=== PATIENT | female | born 1950 | race Caucasian/White ===

== ENCOUNTER 2019-06-29 08:54 | Emergency (ER) | payer MEDICARE, SELFPAY ==
--- NOTE | 2019-06-29 09:22 | ED_ITS ---
Entered by Sundar Taveras, acting as scribe for Crystal Ramirez DO HPI - General Adult General: Chief complaint: Urogenital-Female Stated complaint: UTI Time Seen by Provider: 06/29/19 09:46 History of Present Illness: HPI narrative: 69 yo female presents with UTI. Pt states that she has pain with urination. Pt states that she started having this issue last night. Pt states that she has blood in her urine. Pt states that she had pain with urination about 4 months ago, but didn't have blood in her urine. Pt states that MD complaint: UTI Associated symptoms: Reports nausea; Deny chest pain, dyspnea, headache(s), rash, palpitations or vomiting Review of Systems Const: Denies: fever, chills, body aches, change in appetite, change in weight or fatigue Eyes: Denies: change in vision, blurry vision, blind spots, photophobia, eye redness or yellow eyes ENMT: Denies: throat pain, uvular edema, enlarged tonsils, painful swallowing, hoarseness, swelling of lips/tongue, oral sores/lesions or bad breath Card: Denies: chest pain, palpitations, irregular heart rhythm, edema, swelling of feet/ankles or shortness of breath on exertion Resp: Denies: shortness of breath, productive cough, non-productive cough, wheezing, stridor or pain on inspiration GI: Reports: nausea; Denies: abdominal pain, vomiting, vomiting blood, coffee grounds in vomit, difficulty swallowing, heartburn/indigestion, feeling full early, diarrhea, constipation or belching : Reports: difficulty urinating, painful urination and urinary urgency; Denies: flank pain, urinary frequency, urinary hesitancy or urinary dribbling Musc: Denies: neck pain, back pain, extremity pain, extremity swelling, joint pain, joint swelling, redness, joint warmth, joint stiffness or limited range of motion Skin/Breast: Denies: rash, itching, redness, sensitivity to light, skin pain, skin tenderness, skin swelling, sores, new lesion, changing lesion, non-healing lesion or chronic lesion Neuro: Denies: headache, numbness in extremities, weakness in extremities, lack of coordination, difficulty walking, frequent falls or dizziness Psych: Denies: anxiety, depression, mood swings, panic attacks, sleeping less or sleeping more Endo: Reports: excessive urination; Denies: excessive thirst, tired all the time, cold intolerance or excessive sweating Floyd/Lymph: Denies: easy bruising, easy bleeding, petechiae, purpura or enlarged lymph nodes PFSH ED PFSH: Statuses (acute, chronic, etc) shown below reflect problem list status as previously entered and may not be historically accurate Medical History (Updated 06/29/19 @ 10:10 by Crystal Ramirez DO) CHF (congestive heart failure) (Acute) Hypertension (Acute) Surgical History (Updated 06/29/19 @ 09:46 by Sundar Taveras) History of (Acute) History of cholecystectomy (Acute) Hx of hysterectomy (Acute) Hx of tonsillectomy (Acute) Social History Smoking and tobacco status: never smoked Physical Exam Const: COMMON NORMALS: no apparent distress, average body habitus, oriented x3 and no limitations EXAM LIMITATIONS: no altered mental status GENERAL APPEARANCE: cooperative and well kempt HENMT: COMMON NORMALS: normocephalic HEAD & SCALP: normal to inspection and normocephalic THROAT: no uvular edema Eye: GENERAL EYE: normal appearance of both eyes VISUAL ACUITY: Yes acuity normal Neck/C-Spine: COMMON NORMALS: full ROM, no lymphadenopathy and supple GENERAL: Yes normal visual inspection Lymph: LYMPHATIC: no lymphadenopathy noted Chest: COMMONS NORMALS: inspection of chest normal GI: COMMON NORMALS: normal to inspection, nondistended, normoactive bowel sounds and non-tender : COMMON NORMALS: Yes no CVA tenderness BLADDER/KIDNEY EXAM: Yes no CVA tenderness Back/Pelvis: COMMON NORMALS: no CVA tenderness Extremity: COMMON NORMALS: full ROM Neuro: COMMON NORMALS: oriented x3 Psych: APPEARANCE: Yes well kempt Course Reevaluation(s): Reevaluation #1: Patients urinalysis reviewed, positive for wbc and blood, will treat for acute cystitis, administered nitrofurantoin in ER and dc'd with same and pyridum. Vital Signs: Vital signs: Vital Signs Temperature 907.5 F H 06/29/19 09:23 Pulse Rate 75 06/29/19 09:23 Respiratory Rate 16 06/29/19 09:23 Blood Pressure 134/70 06/29/19 09:23 Pulse Oximetry 95 06/29/19 09:23 [facility] - General Adult Lab Data: Labs: Lab Results 06/29/19 Range/Units 09:25 Urine Color Red (Yellow) Urine Appearance Bloody A (CLEAR) Urine pH 5 (5-7) Ur Specific Gravit y 1.010 (1.005-1.030) Urine Protein 2+ H (Negative) Urine Glucose (UA) Norm (Normal) Urine Ketones Negative (Negative) Urine Occult Blood 3+ H (Negative) Urine Nitrate Negative (Negative) Urine Bilirubin Neg (NEGATIVE) Urine Urobilinogen Norm (Negative) mg/dL Ur Leukocyte Heather ase 2+ H (Negative) Urine RBC Too numerous to c nt H (0-2) /hpf Urine WBC 80-100 H (0-5) /hpf Ur Squamous Epith Cells 0-4 H (0-5) Urine Bacteria 1+ H (NONE) Discharge Plan Discharge Patient Disposition: Home, Self-Care Clinical Impression: Urinary tract infection Qualifiers: Urinary tract infection type: acute cystitis Hematuria presence: with hematuria Qualified Code(s): N30.01 - Acute cystitis with hematuria Condition: Stable Prescriptions: New nitrofurantoin macrocrystal 100 mg capsule 100 mg PO BID 5 Days Qty: 10 RF: 0 Pyridium 200 mg tablet 200 mg PO Q8H Qty: 7 RF: 0 Discharge Orders: Discharge Order (Routine); Ordered 06/29/19 Ordered By: Crystal Ramirez Referrals: Julianna Sosa MD [Primary Care Provider] - None (Follow up with your pcp) Discharge Diet: Usual diet Discharge Activity: Resume usual activity Activity Restrictions/Additional Instructions: No restrictions Coding Level of Care Code ED Felt Finisher for Chg Fwd Exam Problem Focused The documentation recorded by the Nitin raymond Kialy, accurately reflects the service I personally performed and the decisions made by James scherer Connie, DO Jun 29, 2019 08:54
[2019-06-29 09:23] VITALS: BP 134/70; PULSE 75; RESP 16; TEMP 486.4; TEMP 907.5; O2SAT 95; BMI 25.0
[2019-06-29 09:55] LABS: Add Urine Microscopic? YES; Bilirubin Urine Neg (NEGATIVE); Blood Urine 3+ (Negative); Glucose Urine UA Norm (Normal); Ketones Urine Negative (Negative); Leukocyte Esterase Urine 2+ (Negative); Nitrate Urine Negative (Negative); Protein Urine 2+ (Negative); Urine Appearance Bloody (CLEAR); Urine Color Red (Yellow); Urobilinogen Urine Norm (Negative); pH Urine 5 (5-7)
[2019-06-29 10:08] LABS: Bacteria Urine 1+; RBC Urine TOO NUMEROUS TO CNT /hpf (0-2); Squamous Epithelial Cell Urine 0-4 (0-5); WBC Urine 80-100 /hpf (0-5)
[2019-06-29 10:10] LABS: Add Urine Culture? Yes
[2019-06-29] MEDS: nitrofurantoin SR (BID) 100 mg Capsule PO (10:10)
[2019-06-29 10:15] VITALS: BP 128/74; PULSE 75; RESP 16; O2SAT 95
== END 2019-06-29 10:20 | disposition home or self-care (01) ==
PROVIDERS: Nurse Practitioner Family; Emergency Provider Emergency Medicine Emergency Medical Services; Family Provider Family Medicine; PCP Family Medicine
DX: N30.01 Acute cystitis with hematuria (principal); I11.0 Hypertensive heart disease with heart failure; I50.9 Heart failure, unspecified
CPT/HCPCS: 81001; 87077; 87086; 87186; 99282; 99283

== ENCOUNTER → 2019-07-17 11:39 | Outpatient (BNVA) | payer MEDICARE, SELFPAY | PROVIDERS: Family Provider Family Medicine; PCP Family Medicine; Referring Provider Family Medicine; Visit Provider Orthopaedic Surgery | DX: M25.562 Pain in left knee (principal); M17.12 Unilateral primary osteoarthritis, left knee | CPT/HCPCS: 73560; 73565 ==

== ENCOUNTER 2020-03-17 08:00 | Outpatient (CLI) | payer MEDICARE, SELFPAY ==
--- NOTE | 2020-03-17 08:07 | USCV_ITS ---
Mabel Kelley Age: 70 Gender: F : 1950 Exam Date: 03/17/2020 08:03 Ordering Phys: Nola Givens Technologist: Monica Hsu [place]am [place] [facility] [place] Indication: HTN,CHF BP: 127 / 76 HR: 66 Rhythm: Sinus Technical Quality: Adequate MEASUREMENTS (Male / Female) Normal Values 2D ECHO LV Diastolic Diameter PLAX 3.3 cm 4.2 - 5.9 / 3.9 - 5.3 cm LV Systolic Diameter PLAX 2.0 cm LV Chamber Size 3.5 cm IVS Diastolic Thickness 1.5 cm 0.6 - 1.0 / 0.6 - 0.9 cm IVS Systolic Thickness 1.9 cm LVPW Diastolic Thickness 1.3 cm 0.6 - 1.0 / 0.6 - 0.9 cm LVPW Systolic Thickness 1.6 cm RV Chamber Size 2.6 cm LVOT Diameter 2.0 cm LV Ejection Fraction 2D Teich 70.7 % LV Ejection Fraction MOD 2C 1.7 % LV Ejection Fraction 2C AL 5.0 % LA Diameter 3.0 cm LA Width 2.1 cm LA Height 3.0 cm RA Width 2.1 cm RA Height 2.6 cm Aorta at Sinotubular Diameter 2.8 cm M-MODE LV Diastolic Diameter MM 3.8 cm 4.2 - 5.9 / 3.9 - 5.3 cm LV Systolic Diameter MM 1.9 cm LV Ejection Fraction MM Teich 80.5 % IVS Diastolic Thickness MM 1.4 cm 0.6 - 1.0 / 0.6 - 0.9 cm IVS Systolic Thickness MM 1.6 cm LVPW Diastolic Thickness MM 1.0 cm 0.6 - 1.0 / 0.6 - 0.9 cm LVPW Systolic Thickness MM 1.5 cm RV Diastolic Diameter MM 2.3 cm Aortic Annulus Diameter 3.1 cm LA Ao Ratio MM 1.1 MV E Point Septal Separation 0.1 cm DOPPLER AV Peak Velocity 178.0 cm/s LVOT Peak Velocity 136.0 cm/s AV Area Cont Eq vti 2.4 cm squared AV Area Cont Eq pk 2.4 cm squared MV Area PHT 3.0 cm squared Mitral E to A Ratio 1.2 MV E' Velocity 47.5 cm/s Mitral E to MV E' Ratio 13.3 Mitral E to LV E' Lateral Ratio 15.9 Mitral E to LV E' Septal Ratio 11.4 TR Peak Velocity 154.8 cm/s TR Peak Gradient 9.6 mmHg TR Mean Velocity 126.6 cm/s TR Mean Gradient 6.6 mmHg TR Velocity Time Integral 41.9 cm TV Peak E Velocity 66.0 cm/s Right Atrial Pressure 3.0 mmHg Pulmonary Artery Systolic Pressu 12.6 mmHg PV Peak Velocity 59.0 cm/s RV Acceleration Time 0.1 s RV Ejection Time 0.4 s RV AcT/ET 0.4 FINDINGS Left Ventricle Mild to moderate concentric left ventricular hypertrophy.normal left ventricular size and systolic function, EF 70%.no regional wall motion abnormalities. No regional wall motion abnormalities. Grade II/IV diastolic dysfunction, moderately elevated filling pressures. Right Ventricle The right ventricle is normal in size and function. Right Atrium The right atrium is normal in size. Left Atrium The left atrium is normal in size. Mitral Valve No gross abnormalities noted Aortic Valve Thickened aortic valve. Aortic valve sclerosis. Tricuspid Valve Trace tricuspid valve regurgitation. Pulmonic Valve Trace pulmonary valve regurgitation. Pericardium Normal pericardium without effusion. Aorta Normal ascending aorta dimension. CONCLUSIONS Mild to moderate concentric left ventricular hypertrophy. Normal left ventricular size and systolic function, EF 70%. No regional wall motion abnormalities. Grade II/IV diastolic dysfunction, moderately elevated filling pressures. Thickened aortic valve. Trace of tricuspid and pulmonary valve regurgitation. There is no pericardial effusion. There are no intracardiac masses. Compared to the study from 05/06/2019, the gradient across the aortic valve appears to be less Dr Rigoberto Christianson MD [facility] (Electronically Signed) Final Date: 17 March 2020 14:23 S
== END 2020-03-17 08:01 | disposition home or self-care (01) ==
LOC: US 08:02
PROVIDERS: PCP Nurse Practitioner Family; Visit Provider Nurse Practitioner Family
DX: I11.0 Hypertensive heart disease with heart failure (principal); I50.9 Heart failure, unspecified; R53.83 Other fatigue; I08.3 Combined rheumatic disorders of mitral, aortic and tricuspid valves
CPT/HCPCS: 93306

== ENCOUNTER 2020-12-09 08:04 | Outpatient (CLI) | payer MEDICARE, SELFPAY ==
[2020-12-09 08:24] VITALS: BMI 25.0
--- NOTE | 2020-12-09 08:24 | ECG_ITS ---
[facility] Test Date: 2020-12-09 Pat Name: Mabel Kelley Department: Room: Gender: Female [employer]: : 1950 Requested By: Rigoberto Christianson Order Number: [id number] Adi MD: Rigoberto Christianson M.D. Interpretive Statements NAME OF STUDY: LEXISCAN SESTAMIBI STRESS TEST INDICATION: Sob/cp, PROCEDURE: At the baseline, the EKG revealed normal sinus rhythm with a poor R wave progression.. The baseline blood pressure was 132/74 mm Hg with a heart rate of 76 beats/min. Lexiscan was infused over a period of 20 seconds. A total of 0.4 milligrams of Lexiscan was infused. The stress phase was continued for a total of 5 minutes. Heart rate at the end of the stress phase was 88 with a blood pressure 118/85. The EKG at the peak infusion revealed no significant changes. Sestamibi was injected 20 seconds after the Lexiscan infusion. Blood pressure at the end of the recovery phase was 127/84 with a heart rate of 85 per minute. CONCLUSION: 1. No significant EKG changes with the LexiScan infusion 2. No LexiScan induced chest pain or cardiac arrhythmia 3. Normal blood pressure and heart rate response 4. Sestamibi/sestamibi perfusion scan pending; see separate report. Electronically Signed On 12-10-2020 8:32:31 CDT by Rigoberto Christianson M.D. [id number]
--- NOTE | 2020-12-09 08:24 | NMCV_ITS ---
NM elsa perf SPECT r/s* [id number] Mabel Kelley Age: 70 Gender: F : 1950 Exam Date: 12/09/2020 09:26 Ordering Phys: Rigoberto Christianson MD ([email or web address]) Technologist: PRESTON Hennessy Exam Location: [facility] [place] [address] Indications: SHORTNESS OF BREATH, CHEST PAIN STRESS TEST Please see separate stress test report in [facility] for full findings IMAGE PROTOCOL Rest/Stress 1 Lexiscan Day Radiopharmaceutical Dose (mCi) Administration Site Administered by Rest: Tc-99m 10.5 IV PRESTON Hennessy Sestamibi Stress:Tc-99m 32.6 IV PRESTON Flores Sestamibi Rest: 09-Dec-2020 60 Discovery 630 Stress: 09-Dec-2020 30 Discovery 630 0.4mg Lexiscan. Images obtained in supine and prone position. SPECT RESULTS Technical Quality: Excellent Raw Data Analysis: Normal Image Corrections: No attenuation or motion correction applied Summed Stress Score: 0 Summed Rest Score: 0 Summed Difference Score: 0 PERFUSION FINDINGS Fairly uniform myocardial tracer uptake with no significant perfusion abnormalities . FUNCTIONAL RESULTS (calculated via Gated SPECT) Stress Image LV EF (%): 82 Stress EDV (mL):51 TID: 1.04 Stress ESV (mL):9 FUNCTIONAL FINDINGS: Segmental wall motion analysis revealing no gross wall motion normalities IMPRESSIONS 1. Myocardial perfusion imaging revealing uniform myocardial tracer uptake with no evidence of ischemia 2. Normal LV ejection fraction of 82% 3. LV wall motion analysis revealing no gross wall motion normalities. 4. Normal LV volume. No significant coronary ischemia, based on the above findings Dr Rigoberto Christianson MD [facility] (Electronically Signed) Final Date: 09 December 2020 16:12 S
[2020-12-09 10:22] VITALS: BP 132/74; PULSE 85
[2020-12-09] MEDS: regadenoson 0.4 Mg/5 ml Syringe IVP (10:23)
== END 2020-12-09 08:05 | disposition home or self-care (01) ==
LOC: CDL 08:06
PROVIDERS: PCP Nurse Practitioner Family; Visit Provider Internal Medicine Cardiovascular Disease
DX: R07.9 Chest pain, unspecified (principal); R06.02 Shortness of breath
CPT/HCPCS: 78452; 93017; A9500; J2785

== ENCOUNTER → 2021-10-31 13:47 | Outpatient (BNVA) | payer MEDICARE, SELFPAY | PROVIDERS: PCP Clinical Nurse Specialist Adult Health; Visit Provider Internal Medicine Cardiovascular Disease | DX: I11.0 Hypertensive heart disease with heart failure (principal); I50.33 Acute on chronic diastolic (congestive) heart failure; I35.0 Nonrheumatic aortic (valve) stenosis | CPT/HCPCS: 36415; 80048; 83880; 99214 ==

== ENCOUNTER → 2022-05-02 10:09 | Outpatient (BNVA) | payer MEDICARE, SELFPAY | PROVIDERS: PCP Clinical Nurse Specialist Adult Health; Visit Provider Internal Medicine Cardiovascular Disease | DX: I35.0 Nonrheumatic aortic (valve) stenosis (principal); I11.0 Hypertensive heart disease with heart failure; I50.30 Unspecified diastolic (congestive) heart failure; R07.89 Other chest pain; I49.1 Atrial premature depolarization; R94.31 Abnormal electrocardiogram [ECG] [EKG] | CPT/HCPCS: 93005; 99214 ==

== ENCOUNTER → 2022-08-22 12:30 | Outpatient (BNVA) | payer MEDICARE, SELFPAY | PROVIDERS: PCP Clinical Nurse Specialist Adult Health; Visit Provider Clinical Nurse Specialist Adult Health | DX: I10 Essential (primary) hypertension (principal); M19.90 Unspecified osteoarthritis, unspecified site; G25.81 Restless legs syndrome | CPT/HCPCS: 80053; 85025 ==

== ENCOUNTER → 2022-08-24 14:51 | Outpatient (BNVA) | payer MEDICARE, SELFPAY | PROVIDERS: PCP Clinical Nurse Specialist Adult Health; Visit Provider Clinical Nurse Specialist Adult Health | DX: D72.821 Monocytosis (symptomatic) (principal) | CPT/HCPCS: 85651; 86038; 86140 ==

== ENCOUNTER → 2022-09-04 14:58 | Outpatient (BNVA) | payer MEDICARE, SELFPAY | PROVIDERS: PCP Clinical Nurse Specialist Adult Health; Visit Provider Nurse Practitioner Family | DX: J02.9 Acute pharyngitis, unspecified (principal); R52 Pain, unspecified; U07.1 COVID-19 | CPT/HCPCS: 87426; 87880 ==

== ENCOUNTER → 2022-09-11 09:55 | Outpatient (BNVA) | payer MEDICARE, SELFPAY | PROVIDERS: PCP Clinical Nurse Specialist Adult Health; Visit Provider Nurse Practitioner Family | DX: R30.0 Dysuria (principal); N30.01 Acute cystitis with hematuria | CPT/HCPCS: 81000 ==

== ENCOUNTER → 2022-11-09 14:21 | Outpatient (BNVA) | payer MEDICARE, SELFPAY | PROVIDERS: PCP Clinical Nurse Specialist Adult Health; Visit Provider Nurse Practitioner Family | DX: I11.0 Hypertensive heart disease with heart failure (principal); I50.30 Unspecified diastolic (congestive) heart failure | CPT/HCPCS: 99214 ==

== ENCOUNTER → 2022-12-11 11:09 | Outpatient (BNVA) | payer MEDICARE, SELFPAY | PROVIDERS: PCP Clinical Nurse Specialist Adult Health; Visit Provider Internal Medicine Rheumatology | DX: R76.8 Other specified abnormal immunological findings in serum (principal); M25.551 Pain in right hip; M25.552 Pain in left hip; Z79.1 Long term (current) use of non-steroidal anti-inflammatories (NSAID) | CPT/HCPCS: 99204 ==

== ENCOUNTER → 2023-01-08 08:32 | Outpatient (BNVA) | payer MEDICARE, SELFPAY | PROVIDERS: PCP Clinical Nurse Specialist Adult Health; Visit Provider Clinical Nurse Specialist Adult Health | DX: I10 Essential (primary) hypertension (principal); I50.9 Heart failure, unspecified | CPT/HCPCS: 80061 ==

== ENCOUNTER 2023-03-12 22:30 | Emergency (ER) | payer MEDICARE, SELFPAY ==
[2023-03-12 22:33] VITALS: BP 163/83; PULSE 96; RESP 16; TEMP 36.8; O2SAT 96; BMI 25.0
--- NOTE | 2023-03-12 22:46 | W.ED.FEMALGU ---
HPI - Female Genitourinary General: Chief complaint: Urogenital-Female Stated complaint: blood in urine Time Seen by Provider: 03/12/23 22:36 History of Present Illness: 73-year-old female comes in tonight for complaints of lower abdominal pain for the last 2 days. Patient reports urinary frequency and urgency. Denies she had laid down and felt like she had urinated and when she checked she noticed blood in her pad. Patient had noticed some pink tinge urine when she had urinated in the toilet and when she wiped. Patient appears nontoxic. Patient has a history of CHF and hypertension. Patient has also had a hysterectomy. Patient was told she had pelvic organ prolapse in November. Review of Systems General: Reports: 10 or more systems reviewed and unremarkable except in HPI and below : Reports: difficulty voiding, dysuria, urinary urgency and hematuria PFSH ED PFSH: Medical History Benign essential HTN CHF (congestive heart failure) Generalized osteoarthritis Greater trochanteric pain syndrome of both lower extremities Hypertension Mild aortic stenosis NSAID long-term use Palpitations Restless leg syndrome Surgical History History of History of cholecystectomy Hx of breast implants, bilateral Hx of cataract extraction Hx of hysterectomy Hx of tonsillectomy Family History Father Cancer Mother Cancer Sister Cancer Denies family history of Diabetes CAD (coronary artery disease) Clotting disorder Dementia Chronic kidney disease (CKD) Suicide Anesthesia complication Bleeding disorder Lung disease Stroke Social History Smoking and tobacco/nicotine status: never used tobacco/nicotine Alcohol intake: current Alcohol intake frequency: holidays/special occasions only Substance/Drug Use: never Physical Exam Const: COMMON NORMALS: alert HENMT: COMMON NORMALS: normocephalic HEAD & SCALP: normocephalic MOUTH: Normal oral and palatal mucosa present Neck/C-Spine: COMMON NORMALS: full ROM Resp: COMMON NORMALS: normal respiratory effort and clear to auscultation bilaterally AUSCULTATION: clear to auscultation bilaterally Cardio: COMMON NORMALS: regular rate and regular rhythm RATE: regular rate RHYTHM: regular rhythm GI: COMMON NORMALS: Soft to palpation AUSCULTATION: Yes normoactive bowel sounds PALPATION: Yes Soft to palpation, No Tenderness to palpation present (GI) and No Guarding due to palpation present (GI) Back/Pelvis: COMMON NORMALS: thoracic and lumbar spine normal to inspection Extremity: COMMON NORMALS: normal to inspection Neuro: SENSORIUM/ORIENTATION: Yes alert Skin: COMMON NORMALS: turgor normal GENERAL SKIN EXAM: turgor normal Course Vital Signs: Vital signs: Vital Signs Temperature 98.2 F 03/12/23 22:33 Pulse Rate 96 03/12/23 22:33 Respiratory Rate 16 03/12/23 22:33 Blood Pressure 163/83 03/12/23 22:33 Pulse Oximetry 96 03/12/23 22:33 Oxygen Delivery Me thod Room Air 03/12/23 22:33 MDM - Female Medical Decision Making 73-year-old female comes in today with complaints of lower abdominal pain and urinary frequency with urgency, and hematuria. On exam patient appears nontoxic. Patient appears in mild discomfort. Vital signs are normal except for some mild elevation in blood pressure. Differential diagnosis includes urinary tract infection, urinary retention, bladder cancer, pelvic organ prolapse with complications. White blood cell count was 20,000. CMP had a creatinine of 0.7 and BUN of 19. Urinalysis had a large amount of red blood cells along with bacteria and white blood cells. No significant urinary bladder distention was noted. We will treat patient with Rocephin 2 g in the ER and continue on cefdinir 300 mg twice a day for next 7 days. Patient needs to follow-up with urology for further evaluation of the hematuria. No significant anemia was noted. Patient was stable and discharged home with instructions for follow-up or return to the ER for worsening symptoms. Patient reported understanding and agreed to plan. Lab Data 03/12/23 22:55 03/12/23 22:55 Laboratory Results WBC 20.55 10^3/uL (3.29-11.43) H 03/12/23 22:55 RBC 4.88 10^6/uL (3.85-5.65) 03/12/23 22:55 Hgb 13.80 g/dL (11.27-16.99) 03/12/23 22:55 Hct 43.0 % (36-47) 03/12/23 22:55 MCV 88.1 fl (85-98) 03/12/23 22:55 MCH 28.3 pg (27-33) 03/12/23 22:55 MCHC 32.1 g/dL (30-55) 03/12/23 22:55 RDW 14.1 % (12.1-15.1) 03/12/23 22:55 Plt Count 416 10^3/cmm (157-399) H 03/12/23 22:55 MPV 10.1 fL (7.4-10.4) 03/12/23 22:55 Neut % (Auto) 80.7 % 03/12/23 22:55 Lymph % (Auto) 7.6 % 03/12/23 22:55 [place] % (Auto) 10.6 % 03/12/23 22:55 Eos % (Auto) 0.1 % 03/12/23 22:55 Baso % (Auto) 0.2 % 03/12/23 22:55 Neut # (Auto) 16.57 10^3/uL (1.8-7.7) H 03/12/23 22:55 Lymph # (Auto) 1.6 10^3/uL (0.8-4.8) 03/12/23 22:55 [place] # (Auto) 2.2 10^3/uL (0.2-0.9) H 03/12/23 22:55 Eos # (Auto) 0.0 10^3/uL (0.0-0.8) 03/12/23 22:55 Baso # (Auto) 0.1 10^3/uL (0.0-0.1) 03/12/23 22:55 Nucleated RBC % (auto) 0 % 03/12/23 22:55 Nucleated RBCs # 0.0 /100WBC 03/12/23 22:55 Sodium 136 mmol/L (136-145) 03/12/23 22:55 Potassium 3.8 mmol/L (3.5-5.1) 03/12/23 22:55 Chloride 95 mmol/L (98-107) L 03/12/23 22:55 Carbon Dioxide 30 mmol/L (22-29) H 03/12/23 22:55 Anion Gap 14.8 (5-19) 10/23/23 22:55 BUN 19 mg/dL (8-23) 03/12/23 22:55 Creatinine 0.7 mg/dL (0.5-0.9) 03/12/23 22:55 GFR Calculation Not Reportable 03/12/23 22:55 Glucose 130 mg/dL (65-115) H 03/12/23 22:55 Calculated Osmolality 286 mOsm/kg (285-295) 03/12/23 22:55 Calcium 9.8 mg/dL (8.5-10.5) 03/12/23 22:55 Total Bilirubin 0.3 mg/dL (0.15-1.2) 03/12/23 22:55 AST 21 U/L (0-32) 03/12/23 22:55 ALT 21 U/L (0-33) 03/12/23 22:55 Alkaline Phosphatase 135 U/L (35-105) H 03/12/23 22:55 Total Protein 8.0 g/dL (6.6-8.7) 03/12/23 22:55 Albumin 4.6 g/dL (3.5-5.2) 03/12/23 22:55 Globulin 3.4 g/dL (1.3-4.6) 03/12/23 22:55 Urine Color Red (Yellow) A 03/12/23 23: Urine Appearance Turbid (CLEAR) A 03/12/23 23: Urine pH 6.5 (5-7) 03/12/23 23: Ur Specific [place] 1.010 (1.005-1.030) 03/12/23 23: Urine Protein 3+ (Negative) H 03/12/23 23: Urine Glucose (UA) Norm (Normal) 03/12/23 23: Urine Ketones 1+ (Negative) H 03/12/23 23: Urine Blood 3+ (Negative) H 03/12/23 23: Urine Nitrate Negative (Negative) 03/12/23 23: Urine Bilirubin Neg (Negative) 03/12/23 23: Urine Urobilinogen 1 mg/dL (Negative) H 03/12/23 23:27 Ur Leukocyte Esterase 2+ (Negative) H 03/12/23 23: Urine RBC Too numerous to cnt /hpf (0-2) H 03/12/23 23:27 Urine WBC 15-25 /hpf (0-5) H 03/12/23 23:27 Ur Squamous Epith Cells None /hpf (0-5) 03/12/23 23:27 Amorphous Sediment Not Reportable 03/12/23 23:27 Urine Bacteria 1+ /hpf (NONE) H 03/12/23 23:27 Urine Mucus 1+ /hpf 03/12/23 23:27 No radiology studies performed this visit Discharge Plan Discharge Patient Disposition: Home Clinical Impression: Hematuria Qualifiers: Hematuria type: gross Qualified Code(s): R31.0 - Gross hematuria UTI (urinary tract infection) Qualifiers: Urinary tract infection type: acute cystitis Hematuria presence: with hematuria Qualified Code(s): N30.01 - Acute cystitis with hematuria Condition: Stable Prescriptions: New cefdinir 300 mg capsule 300 mg PO BID 7 Days Qty: 14 0RF No Action loratadine [Allergy Relief (loratadine)] 10 mg tablet 10 mg PO DAILY (DME) Handicap accessible Ramp See Rx Instructions .Route .MEDSUPPLY Qty: 1 0RF Rx Instructions: As directed (DME) Air Bed/Mattress See Rx Instructions .Route .MEDSUPPLY Qty: 1 0RF Rx Instructions: As directed betamethasone dipropionate 0.05 % ointment 1 applic topical DAILY PRN (Reason: skin irritation) Qty: 15 1RF multivitamin Tablet 1 tab PO DAILY verapamil 120 mg tablet extended release 120 mg PO DAILY Qty: 100 3RF spironolactone 25 mg tablet 25 mg PO DAILY Qty: 100 3RF ropinirole 2 mg tablet 2 mg PO DAILY Qty: 90 3RF triamterene-hydrochlorothiazid 37.5-25 mg tablet 1 tab PO DAILY Qty: 90 3RF furosemide 20 mg tablet 20 mg PO DAILY PRN (Reason: edema) Qty: 90 0RF Discharge Orders: Discharge ED (Routine); Ordered 03/12/23 Ordered By: Howard Grant Referrals: Maxx Song SURGICAL TECH [Primary Care Provider] - Discharge Diet: Usual diet Discharge Activity: Increase activity as tolerated Patient Instructions: Urinary Tract Infection in Women (ED) Activity Restrictions/Additional Instructions: Make sure to drink plenty of water and fluids unless restricted. Take antibiotics as directed. Follow-up with primary care in 3 to 5 days for recheck. Follow-up with urologist for further evaluation of blood in urine. Return to ER for worsening symptoms such as high fever greater than 100.4, inability to hold fluids down, lightheadedness, shortness of breath, or new concerns. Coding Level of Care Code ED Paper Guillotine Operator for Mazin Castaneda
[2023-03-12 23:02] LABS: Basophils # 0.1 10^3/uL (0.0-0.1); Basophils % 0.2 %; Eosinophils % 0.1 %; Lymphocytes # 1.6 10^3/uL (0.8-4.8); Lymphocytes % 7.6 %; Mean Corpuscular HGB Conc 32.1 g/dL (30-55); Mean Corpuscular Hemoglobin 28.3 pg (27-33); Mean Corpuscular Volume 88.1 fl (85-98); Mean Platelet Volume 10.1 fL (7.4-10.4); Monocytes # 2.2 10^3/uL (0.2-0.9); Monocytes % 10.6 %; Neutrophils # 16.57 10^3/uL (1.8-7.7); Neutrophils % 80.7 %; Nucleated Red Blood Cells % 0 %; Platelet Count 416 10^3/cmm (157-399); Red Blood Count 4.88 10^6/uL (3.85-5.65); Red Cell Distribution Width 14.1 % (12.1-15.1); White Blood Count 20.55 10^3/uL (3.29-11.43)
[2023-03-12 23:22] LABS: Alanine Aminotransferase 21 U/L (0-33); Albumin Level 4.6 g/dL (3.5-5.2); Alkaline Phosphatase 135 U/L (35-105); Anion Gap 14.8 (5-19); Aspartate Amino Transferase 21 U/L (0-32); Blood Urea Nitrogen 19 mg/dL (8-23); Calcium 9.8 mg/dL (8.5-10.5); Carbon Dioxide 30 mmol/L (22-29); Chloride 95 mmol/L (98-107); Globulin 3.4 g/dL (1.3-4.6); Glucose 130 mg/dL (65-115); Osmolality Calculated 286 mOsm/kg (285-295); Potassium 3.8 mmol/L (3.5-5.1); Sodium 136 mmol/L (136-145); Total Bilirubin 0.3 mg/dL (0.15-1.2)
[2023-03-12 23:43] LABS: Urine Appearance Turbid (CLEAR); Urine Color Red (Yellow)
[2023-03-12 23:44] LABS: Add Urine Microscopic? YES; Bilirubin Urine Neg (Negative); Blood Urine 3+ (Negative); Glucose Urine UA Norm (Normal); Ketones Urine 1+ (Negative); Leukocyte Esterase Urine 2+ (Negative); Nitrate Urine Negative (Negative); Protein Urine 3+ (Negative); Urobilinogen Urine 1 mg/dL (Negative); pH Urine 6.5 (5-7)
[2023-03-12 23:47] LABS: RBC Urine TOO NUMEROUS TO CNT /hpf (0-2)
[2023-03-12 23:48] LABS: WBC Urine 15-25 /hpf (0-5)
[2023-03-12 23:49] LABS: Add Urine Culture? Yes; Bacteria Urine 1+ /hpf; Mucus Urine 1+ /hpf
[2023-03-13] MEDS: cefTRIAXone 2,000 MG in sodium chloride 0.9% (plus) 50 ML 100 MG IV (00:05)
[2023-03-13 00:10] VITALS: BP 129/69; PULSE 94; RESP 18; O2SAT 90
[2023-03-13 00:50] VITALS: BP 128/71; RESP 16; O2SAT 91
== END 2023-03-13 00:59 | disposition home or self-care (01) ==
PROVIDERS: Emergency Provider Nurse Practitioner Family; PCP Clinical Nurse Specialist Adult Health
DX: N30.01 Acute cystitis with hematuria (principal); I11.0 Hypertensive heart disease with heart failure; I50.9 Heart failure, unspecified
CPT/HCPCS: 51701; 51798; 80053; 81001; 85025; 87086; 96365; 99284; J0696

== ENCOUNTER → 2023-03-14 10:54 | Outpatient (BNVA) | payer MEDICARE, SELFPAY | PROVIDERS: PCP Clinical Nurse Specialist Adult Health; Visit Provider Clinical Nurse Specialist Adult Health | DX: N39.0 Urinary tract infection, site not specified (principal) | CPT/HCPCS: 81000 ==

== ENCOUNTER 2023-03-28 15:56 | Outpatient (CLI) | payer MEDICARE, SELFPAY ==
--- NOTE | 2023-03-28 16:30 | USCV_ITS ---
Mabel Kelley Age: 73 Gender: F : 1950 Exam Date: 03/28/2023 16:06 Ordering Phys: Maxx Song NP Technologist: CT Exam Location: [facility] [place] Indication: PROCEDURES: Venous duplex imaging was performed in only the left lower extremity. In addition, the posterior tibial and peroneal trunk were evaluated. FINDINGS: Normal 2-D Doppler and augmentation and compressibility throughout the lower extremity venous structures. Additional imaging through the proximal calf veins also reveals no thrombus. Limited evaluation of the greater saphenous vein is patent with no thrombus. CONCLUSIONS No DVT left lower extremity. Dr. Sarah Veronica DO (Electronically Signed) Final Date: 29 March 2023 11:11 S
== END 2023-03-28 15:57 | disposition home or self-care (01) ==
LOC: RAD 15:56
PROVIDERS: PCP Clinical Nurse Specialist Adult Health; Visit Provider Clinical Nurse Specialist Adult Health
DX: M79.605 Pain in left leg (principal); M79.662 Pain in left lower leg; R31.9 Hematuria, unspecified
CPT/HCPCS: 73590; 81000; 93971

== ENCOUNTER 2023-03-28 15:57 | Outpatient (CLI) | payer MEDICARE, SELFPAY ==
--- NOTE | 2023-03-28 16:11 | XR_ITS ---
WS: [id number] Left leg including the tibia and fibula, AP and lateral views, 03/28/2023 Clinical Data: left medial leg pain Comparison: None. Findings: No fractures or dislocations are seen. The tibia and fibula are intact. The soft tissues are normal. There is medial and lateral joint compartment narrowing of the left knee. The ankle mortise is intact . Impression: Negative for fracture.
== END 2023-03-28 15:58 | disposition home or self-care (01) ==
PROVIDERS: PCP Clinical Nurse Specialist Adult Health; Visit Provider Clinical Nurse Specialist Adult Health
DX: M79.605 Pain in left leg (principal)
CPT/HCPCS: 73590

== ENCOUNTER → 2023-05-10 15:17 | Outpatient (BNVA) | payer MEDICARE, SELFPAY | PROVIDERS: PCP Clinical Nurse Specialist Adult Health; Visit Provider Internal Medicine Cardiovascular Disease | DX: R06.02 Shortness of breath (principal); I10 Essential (primary) hypertension | CPT/HCPCS: 36415; 80048; 83880; 99214 ==

== ENCOUNTER 2023-05-29 14:04 | Outpatient (CLI) | payer MEDICARE, SELFPAY ==
[2023-05-29 14:58] LABS: Anion Gap 15.7 (5-19); Blood Urea Nitrogen 16 mg/dL (8-23); Calcium 9.4 mg/dL (8.5-10.5); Carbon Dioxide 30 mmol/L (22-29); Chloride 93 mmol/L (98-107); Glucose 92 mg/dL (65-115); Osmolality Calculated 281 mOsm/kg (285-295); Potassium 3.7 mmol/L (3.5-5.1); Sodium 135 mmol/L (136-145)
== END 2023-05-29 14:05 | disposition home or self-care (01) ==
PROVIDERS: PCP Clinical Nurse Specialist Adult Health; Visit Provider Internal Medicine Cardiovascular Disease
DX: I50.30 Unspecified diastolic (congestive) heart failure (principal)
CPT/HCPCS: 80048

== ENCOUNTER → 2023-06-01 11:48 | Outpatient (BNVA) | payer MEDICARE, SELFPAY | PROVIDERS: PCP Clinical Nurse Specialist Adult Health; Visit Provider Clinical Nurse Specialist Adult Health | DX: I10 Essential (primary) hypertension (principal); I50.30 Unspecified diastolic (congestive) heart failure; M61.50 Other ossification of muscle, unspecified site | CPT/HCPCS: 80053; 85025; 86140 ==

== ENCOUNTER → 2023-07-05 08:23 | Outpatient (BNVA) | payer MEDICARE, SELFPAY | PROVIDERS: PCP Clinical Nurse Specialist Adult Health; Visit Provider Nurse Practitioner Family | DX: R30.9 Painful micturition, unspecified (principal); N30.01 Acute cystitis with hematuria | CPT/HCPCS: 81000; 87077; 87086; 87184 ==

== ENCOUNTER → 2023-07-18 15:18 | Outpatient (BNVA) | payer MEDICARE, SELFPAY | PROVIDERS: PCP Family Medicine; Referring Provider Family Medicine; Visit Provider Specialist | DX: S82.225D Nondisplaced transverse fracture of shaft of left tibia, subsequent encounter for closed fracture with routine healing; W10.8XXD Fall (on) (from) other stairs and steps, subsequent encounter; M79.605 Pain in left leg | CPT/HCPCS: 73590; 99204 ==

== ENCOUNTER 2023-10-01 11:42 | Outpatient (RCR) | payer MEDICARE, SELFPAY | END 2023-10-16 23:59 | disposition home or self-care (01) | LOC: SPT 11:42 | PROVIDERS: PCP Family Medicine; Visit Provider Family Medicine | DX: M79.662 Pain in left lower leg (principal) | CPT/HCPCS: 97110; 97161 ==

== ENCOUNTER → 2023-11-28 09:20 | Outpatient (BNVA) | payer MEDICARE, SELFPAY | PROVIDERS: PCP Family Medicine; Visit Provider Nurse Practitioner Family | DX: I49.9 Cardiac arrhythmia, unspecified (principal); I11.0 Hypertensive heart disease with heart failure; I50.30 Unspecified diastolic (congestive) heart failure; I35.0 Nonrheumatic aortic (valve) stenosis | CPT/HCPCS: 93005; 99214 ==

== ENCOUNTER → 2024-07-02 15:27 | Outpatient (BNVA) | payer MEDICARE, SELFPAY | PROVIDERS: PCP Family Medicine; Visit Provider Internal Medicine Cardiovascular Disease | DX: R07.9 Chest pain, unspecified (principal); R06.02 Shortness of breath; R93.1 Abnormal findings on diagnostic imaging of heart and coronary circulation; R07.89 Other chest pain; I50.30 Unspecified diastolic (congestive) heart failure; I35.0 Nonrheumatic aortic (valve) stenosis; I11.0 Hypertensive heart disease with heart failure | CPT/HCPCS: 36415; 80048; 93005; 99214 ==

== ENCOUNTER → 2025-01-20 13:58 | Outpatient (BNVA) | payer MEDICARE, SELFPAY | PROVIDERS: PCP Family Medicine; Visit Provider Internal Medicine Cardiovascular Disease | DX: I49.9 Cardiac arrhythmia, unspecified (principal); R55 Syncope and collapse; R07.89 Other chest pain; I11.0 Hypertensive heart disease with heart failure; I50.30 Unspecified diastolic (congestive) heart failure; I35.8 Other nonrheumatic aortic valve disorders | CPT/HCPCS: 99214 ==